=== PATIENT | male | born 1960 | race Caucasian/White ===

== ENCOUNTER 2019-10-31 15:25 | Observation (INO) | payer OTHER, SELFPAY ==
[2019-10-31] VITALS (26 sets, daily range): BP systolic 121–145; BP diastolic 73–103; PULSE 59–75; RESP 0–22; TEMP 36.2–36.4; O2SAT 98–99; BMI 33.0
--- NOTE | 2019-10-31 15:28 | DI.RAD.S_ITS ---
PROCEDURE: XR CHEST 1V INDICATIONS: chest pain TECHNIQUE: One view of the chest was acquired. COMPARISON: None. FINDINGS: Surgical changes and devices: None. Lungs and pleura: Lungs are clear. No pleural effusions or pneumothorax. Mediastinum: Mediastinal contours appear normal. Heart size is normal. Bones and chest wall: No suspicious bony lesions. Overlying soft tissues appear unremarkable. IMPRESSION: No acute process. Dictated by: Azalia Glez M.D. on 10/31/2019 at 15:48 Approved by: Azalia Glez M.D. on 10/31/2019 at 15:48
--- NOTE | 2019-10-31 15:36 | PC.NURSE ---
first bp was left arm 121/103, second is rt arm 145/73
[2019-10-31 15:43] LABS: Add Manual Diff / Slide Review NO; Basophils Absolute Auto 100 /uL (0-100); Eosinophils Absolute Auto 100 /uL (0-450); Eosinophils Percent Auto 1.2 % (2-4); Hematocrit 41.4 % (41-53); Hemoglobin 14.2 g/dL (13.5-17.5); Lymphocytes Absolute Auto 1600 /uL (1100-4500); Lymphocytes Percent Auto 30.5 % (25-40); Mean Corpuscular HGB Conc 34.2 % (30-36); Mean Corpuscular Hemoglobin 30.4 PG (26-34); Mean Corpuscular Volume 88.7 fL (80-100); Monocytes Absolute Auto 400 /uL (0-900); Monocytes Percent Auto 7.5 % (3-14); Neutrophils Absolute Auto 3100 /uL (1500-7000); Neutrophils Percent Auto 59.8 % (50-75); Platelet Count 163 X10^3/uL (150-400); Red Blood Cell Count 4.67 X10^6/uL (4.5-5.9); Red Cell Distribution Width 13.1 % (11.6-14.8); White Blood Cell Count 5.1 X10^3/uL (4.5-11.0)
[2019-10-31 15:49] LABS: Prothrombin Time 11.6 SECONDS (10.1-12.7)
[2019-10-31 15:52] LABS: PTT Partial Thromboplastin Tim 33 SECONDS (26.4-36.2)
[2019-10-31 15:55] LABS: Alanine Aminotransferase 24 IU/L (<50); Albumin 4.8 g/dL (3.5-5.0); Albumin Globulin Ratio 1.5 (1.0-2.8); Alkaline Phosphatase 48 U/L (38-126); Aspartate Aminotransferase 30 IU/L (17-59); BUN Creatinine Ratio 17.1 (6-22); Bilirubin Total 1.1 mg/dL (0.2-1.3); Blood Urea Nitrogen 19 mg/dL (9-20); Calcium 9.6 mg/dL (8.4-10.2); Carbon Dioxide 23 mmol/L (22-32); Chloride 102 mmol/L (98-107); Creatine Kinase 120 U/L (55-170); Estimated Glomerular Filt Rate > 60.0 mL/min (>60); Globulin 3.1 g/dL (1.7-4.1); Glucose 100 mg/dL (80-110); HEMOLYSIS < 15 (0-50); Lipase 128 U/L (23-300); Potassium 4.2 mmol/L (3.4-5.1); Sodium 134 mmol/L (137-145); Total Protein 7.9 g/dL (6.3-8.2)
[2019-10-31 16:06] LABS: Troponin I < 0.012 ng/mL (0.01-0.034)
[2019-10-31 16:11] LABS: CKMB % Relative Index 1.3 % (1.5-5.0); Creatine Kinase MB 1.61 ng/mL (<2.37)
--- NOTE | 2019-10-31 16:17 | PC.NURSE ---
BP right arm 136/92. BP left arm 132/92 On monitor in room. Provider at bedside.
--- NOTE | 2019-10-31 16:20 | PC.NURSE ---
reports stable descending aneurysm dx in 2013. reports no sob, diaphoresis. states he is performing all regular activities with no difficulty.
[2019-10-31] MEDS: SODIUM CHLORIDE 0.9% 500 ML 1000 ML IV (16:28)
--- NOTE | 2019-10-31 16:38 | ED.CHESTPAIN ---
HPI - Chest Pain General Chief Complaint: Chest Pain Stated Complaint: chest pain off and on for 3 weeks Time Seen by Provider: 10/31/19 16:05 Source: patient and family Mode of arrival: Ambulatory Limitations: no limitations History of Present Illness HPI narrative: Patient here with . Complains off and on left-sided chest pain for 3 weeks. No exertional chest pain or dyspnea. Pain may occur at rest or with activity. Pain radiates sometimes to the right and solid upwards. No syncope. No numbness tingling weakness. Patient has history of 4.6 cm ascending aortic aneurysm that is closely followed by his thoracic surgeon back in [place]. His most recent CT scan report brought with him at bedside was completed last year. No recent illness cough cold congestion fever chills. No abdominal pain. No back pain. No altered mental status. Currently no chest pain. Patient states at most discomfort is 3/10. Sometimes lasting upwards to 1-1/2 hours. Last stress test in 2013. Currently chest pain-free Related Data Allergies Allergy/AdvReac Type Severity Reaction Status Date / Time No Known Drug Allergies Allergy Verified 10/31/19 15:28 Review of Systems Review of Systems Narrative: GENERAL: Denies chills, fatigue, malaise, fever, sweats. HEENT: Denies sinus pain, ear pain, sore throat, difficulty swallowing, dizziness. RESPIRATORY: Denies dyspnea, cough, wheezing, hemoptysis, sputum. CARDIOVASCULAR: Complains of chest pain, denies any palpitations, orthopnea, edema, GASTROINTESTINAL: Denies nausea, vomiting, abdominal pain, diarrhea, constipation, melena. : Denies dysuria, frequency, incontinence, hematuria, urinary retention. MUSCULOSKELETAL: denies weakness, joint pain, or bony pain SKIN: Denies rash, skin lesions, or other NEUROLOGIC: Denies weakness, headache, numbness, change in speech, confusion, seizures, incoordination. PSYCHIATRIC: No concerning psychosocial issues. ROS Unobtainable: All systems reviewed & are unremarkable except as noted in HPI and below Patient History Social History Smoking Status: Former smoker Smoking Status: Former smoker alcohol intake frequency: a few times a week Alcohol type: beer Substance Use Type: does not use Exam Narrative Exam Narrative: GENERAL: patient appears stated age. Well-nourished, well-developed patient, in no distress, not toxic HEAD: Atraumatic. Normocephalic. EYES: Pupils equal round and reactive. Extraocular motions intact. No scleral icterus. No injection or drainage. ENT: Nose without bleeding, purulent drainage. Throat without erythema, tonsillar hypertrophy or exudate. Airway patent. NECK: Trachea midline. Non tender CARDIOVASCULAR: Regular rate without murmurs, gallops, or rubs. Symmetric blood pressure each arm conducted by nurse RESPIRATORY: Clear to auscultation. Breath sounds equal bilaterally. No wheezes, rales, or rhonchi. GASTROINTESTINAL: Abdomen soft, non-tender, nondistended. EXTREMITIES: No edema or joint tenderness. BACK: Nontender without deformity or crepitance. No flank tenderness. NEURO: AOx3. SKIN: No rash or erythema of visible areas PSYCH: Not anxious, is cooperative Initial Vital Signs Initial Vital Signs: Vital Signs Temperature 97.5 F L 10/31/19 15:29 Pulse Rate 75 10/31/19 15:29 Respiratory Rate 16 10/31/19 15:29 Blood Pressure 121/103 H 10/31/19 15:29 Pulse Oximetry 98 10/31/19 15:29 Course Course Course Narrative: Patient desires admission hospital Decision to Admit Date: 10/31/19 Decision to Admit time: 18:27 Orders Ordered: ED Orders 10/31/19 15:28 XR chest 1V Stat EKG-12 Lead Stat 10/31/19 15:35 Complete Blood Count AUTO DIFF Stat Comprehensive Metabolic Panel Stat Lipase Stat Partial Thromboplastin Time Stat Prothrombin Time INR Stat Troponin & CK Cardiac Panel Stat 10/31/19 16:49 Troponin I Stat 10/31/19 17:00 CT angio chest PE protocol Stat Discontinued Medications Sodium Chloride (Normal Saline 0.9%) 500 mls @ 1,000 mls/hr IV BOLUS ONE Stop: 10/31/19 16:49 Last Infusion: 10/31/19 17:17 Dose: 0 mls/hr Documented by: Admin: 10/31/19 16:28 Dose: 1,000 mls/hr Documented by: WHITNEY Reevaluation(s) Reevaluation #1: Patient remains chest pain-free Time: 16:39 Reevaluation #2: Still chest pain free Time: 18:28 Consultations Consultation #1: Spoke with hospitalist Dr. conroy, she will admit patient Time: 18:28 Vital Signs Vital signs: Vital Signs - 8 hr 10/31/19 15:29 10/31/19 15:40 10/31/19 15:41 Temperature 97.5 F L Pulse Rate 75 Respiratory Rate 16 Blood Pressure 121/103 H 145/73 H 145/83 H Pulse Oximetry 98 10/31/19 16:09 10/31/19 16:11 10/31/19 16:12 Temperature Pulse Rate 73 71 70 Respiratory Rate 22 17 20 Blood Pressure 132/92 H 136/93 H Pulse Oximetry 10/31/19 16:30 10/31/19 17:00 Temperature Pulse Rate 65 65 Respiratory Rate 14 11 L Blood Pressure Pulse Oximetry MDM - Chest Pain Differential Diagnosis Differential diagnosis: Likely stable angina, unstable angina pectoris and chest pain Lab Data Attestation: I reviewed the patient's lab results. Result diagrams: 10/31/19 15:35 10/31/19 15:35 Labs: Lab Results 10/31/19 10/31/19 10/31/19 Range/Units 15:35 15:35 15:35 WBC 5.1 (4.5-11.0) X10^3/uL RBC 4.67 (4.5-5.9) X10^6/uL Hgb 14.2 (13.5-17.5) g/dL Hct 41.4 (41-53) % MCV 88.7 (80-100) fL MCH 30.4 (26-34) PG MCHC 34.2 (30-36) % RDW 13.1 (11.6-14.8) % Plt Count 163 (150-400) X10^3/uL Neut % (Auto) 59.8 (50-75) % Lymph % (Auto) 30.5 (25-40) % [place] % (Auto) 7.5 (3-14) % Eos % (Auto) 1.2 L (2-4) % Baso % (Auto) 1.0 (0-2) % Neut # (Auto) 3100 (8901-5189) /uL Lymph # (Auto) 1600 (4511-4036) /uL [place] # (Auto) 400 (0-900) /uL Eos # (Auto) 100 (0-450) /uL Baso # (Auto) 100 (0-100) /uL PT 11.6 (10.1-12.7) SECONDS INR 1.0 (0.9-1.3) APTT 33 (26.4-36.2) SECONDS Sodium 134 L (137-145) mmol/L Potassium 4.2 (3.4-5.1) mmol/L Chloride 102 (98-107) mmol/L Carbon Dioxide 23 (22-32) mmol/L BUN 19 (9-20) mg/dL Creatinine 1.11 (0.66-1.25) mg/dL Estimated GFR > 60.0 (>60) mL/min BUN/Creatinine Ratio 17.1 (6-22) Glucose 100 (80-110) mg/dL Calcium 9.6 (8.4-10.2) mg/dL Total Bilirubin 1.1 (0.2-1.3) mg/dL AST 30 (17-59) IU/L ALT 24 (<50) IU/L Alkaline Phosphatase 48 (38-126) U/L Total Creatine Kinase 120 (55-170) U/L CK-MB (CK-2) 1.61 (<2.37) ng/mL CK-MB (CK-2) Rel Index 1.3 L (1.5-5.0) % Troponin I < 0.012 (0.01-0.034) ng/mL Total Protein 7.9 (6.3-8.2) g/dL Albumin 4.8 (3.5-5.0) g/dL Globulin 3.1 (1.7-4.1) g/dL Albumin/Globulin Ratio 1.5 (1.0-2.8) Lipase 128 (23-300) U/L 10/31/19 Range/Units 16:49 WBC (4.5-11.0) X10^3/uL RBC (4.5-5.9) X10^6/uL Hgb (13.5-17.5) g/dL Hct (41-53) % MCV (80-100) fL MCH (26-34) PG MCHC (30-36) % RDW (11.6-14.8) % Plt Count (150-400) X10^3/uL Neut % (Auto) (50-75) % Lymph % (Auto) (25-40) % [place] % (Auto) (3-14) % Eos % (Auto) (2-4) % Baso % (Auto) (0-2) % Neut # (Auto) (4322-2134) /uL Lymph # (Auto) (9608-9594) /uL [place] # (Auto) (0-900) /uL Eos # (Auto) (0-450) /uL Baso # (Auto) (0-100) /uL PT (10.1-12.7) SECONDS INR (0.9-1.3) APTT (26.4-36.2) SECONDS Sodium (137-145) mmol/L Potassium (3.4-5.1) mmol/L Chloride (98-107) mmol/L Carbon Dioxide (22-32) mmol/L BUN (9-20) mg/dL Creatinine (0.66-1.25) mg/dL Estimated GFR (>60) mL/min BUN/Creatinine Ratio (6-22) Glucose (80-110) mg/dL Calcium (8.4-10.2) mg/dL Total Bilirubin (0.2-1.3) mg/dL AST (17-59) IU/L ALT (<50) IU/L Alkaline Phosphatase (38-126) U/L Total Creatine Kinase (55-170) U/L CK-MB (CK-2) (<2.37) ng/mL CK-MB (CK-2) Rel Index (1.5-5.0) % Troponin I < 0.012 (0.01-0.034) ng/mL Total Protein (6.3-8.2) g/dL Albumin (3.5-5.0) g/dL Globulin (1.7-4.1) g/dL Albumin/Globulin Ratio (1.0-2.8) Lipase (23-300) U/L Imaging Data Chest x-ray: Radiologist's Impression: [address] [address] XRay Report Signed Patient: Luis Alberto Rutledge#: [id number] : 9Acct:[id number] Age/Sex: 59 / MDate of Service: 10/31/19 Loc: ED Accession Number: [id number] Procedure: XR chest 1V Ordering Provider: Jeff Waldrop MD PROCEDURE: XR CHEST 1V INDICATIONS: chest pain TECHNIQUE: One view of the chest was acquired. COMPARISON: None. FINDINGS: Surgical changes and devices: None. Lungs and pleura: Lungs are clear. No pleural effusions or pneumothorax. Mediastinum: Mediastinal contours appear normal. Heart size is normal. Bones and chest wall: No suspicious bony lesions. Overlying soft tissues appear unremarkable. IMPRESSION: No acute process. Dictated by: Azalia Glez M.D. on 10/31/2019 at 15:48 Approved by: Azalia Glez M.D. on 10/31/2019 at 15:48 CT scan - chest: Radiologist's Impression: [place] [address] CT Scan Report Signed Patient: Luis Alberto Rutledge#: [id number] : 9Acct:[id number] Age/Sex: 59 / MDate of Service: 10/31/19 Loc: ED Accession Number: [id number] Procedure: CT angio chest PE protocol Ordering Provider: Jeff Waldrop MD PROCEDURE: CT ANGIO CHEST PE PROTOCOL INDICATIONS: chest pain TECHNIQUE: After the administration of intravenous contrast, 2 mm thick sections acquired from the pulmonary apices to the posterior costophrenic angles. 3-dimensional maximum intensity projection (MIP) coronal and sagittal reformats were then acquired through the thorax. For radiation dose reduction, the following was used: automated exposure control, adjustment of mA and/or kV according to patient size. COMPARISON: None. FINDINGS: Image quality: Excellent. Pulmonary arteries: Pulmonary arteries are normal in size, and demonstrate no intraluminal filling defects to suggest central pulmonary embolism. Lungs and pleura: Lungs are clear. No pleural effusions or pneumothorax. Central and peripheral airways are patent. Mediastinum: Heart size is normal, without pericardial effusion. No mediastinal or hilar adenopathy. The ascending thoracic aorta measures 4.7 cm in oblique axial diameter. The arch in the descending thoracic aorta demonstrate normal course and caliber. Esophagus is normal in caliber, without hiatal hernia. Bones and chest wall: No suspicious bony lesions. Ribs and thoracic spine appear intact throughout. Thyroid gland is unremarkable . No axillary or supraclavicular adenopathy. Abdomen: A nonobstructing calculus is present within the upper pole of the left kidney. Visualized upper abdominal solid organs appear normal in the early arterial phase of enhancement. IMPRESSION: Numeral 1. No acute pulmonary embolus. 2. Nonobstructive left nephrolithiasis. Dictated by: Christine Mar M.D. on 10/31/2019 at 17:36 Approved by: Christine Mar M.D. on 10/31/2019 at 17:39 ECG Data Attestation: I personally reviewed and interpreted this ECG as follows: Interpretation: Normal sinus rhythm, normal EKG, no ST elevation or depression, ventricular rate 68 MDM Narrative Medical decision making narrative: Appropriate for admission for chest pain rule out and stress test. Patient and are retired and lives in the do not have regular primary care office. They travel the country Discharge Plan Departure Patient Disposition: Admitted as Observation Clinical Impression: Chest pain Qualifiers: Chest pain type: unspecified Qualified Code(s): R07.9 - Chest pain, unspecified
--- NOTE | 2019-10-31 16:48 | PC.NURSE ---
drawn by lab
--- NOTE | 2019-10-31 17:00 | DI.CT.S_ITS ---
PROCEDURE: CT ANGIO CHEST PE PROTOCOL INDICATIONS: chest pain TECHNIQUE: After the administration of intravenous contrast, 2 mm thick sections acquired from the pulmonary apices to the posterior costophrenic angles. 3-dimensional maximum intensity projection (MIP) coronal and sagittal reformats were then acquired through the thorax. For radiation dose reduction, the following was used: automated exposure control, adjustment of mA and/or kV according to patient size. COMPARISON: None. FINDINGS: Image quality: Excellent. Pulmonary arteries: Pulmonary arteries are normal in size, and demonstrate no intraluminal filling defects to suggest central pulmonary embolism. Lungs and pleura: Lungs are clear. No pleural effusions or pneumothorax. Central and peripheral airways are patent. Mediastinum: Heart size is normal, without pericardial effusion. No mediastinal or hilar adenopathy. The ascending thoracic aorta measures 4.7 cm in oblique axial diameter. The arch in the descending thoracic aorta demonstrate normal course and caliber. Esophagus is normal in caliber, without hiatal hernia. Bones and chest wall: No suspicious bony lesions. Ribs and thoracic spine appear intact throughout. Thyroid gland is unremarkable . No axillary or supraclavicular adenopathy. Abdomen: A nonobstructing calculus is present within the upper pole of the left kidney. Visualized upper abdominal solid organs appear normal in the early arterial phase of enhancement. IMPRESSION: Numeral 1. No acute pulmonary embolus. 2. Nonobstructive left nephrolithiasis. Dictated by: Christine Mar M.D. on 10/31/2019 at 17:36 Approved by: Christine Mar M.D. on 10/31/2019 at 17:39
[2019-10-31 17:20] LABS: Troponin I < 0.012 ng/mL (0.01-0.034)
[2019-10-31] MEDS: ASPIRIN 81 MG CHEW TAB 324 MG PO (18:33)
--- NOTE | 2019-10-31 19:30 | PC.NURSE ---
[birth year]29- Admit from Emergency. Patient alert and oriented. Oriented to the room and assisted to the bed. Patient at bedside. Patient states he is pain free at this time. VSS.
[2019-10-31 20:01] LABS: COVID19 -Nasal RAPID Negative (Negative)
[2019-10-31 23:33] LABS: Troponin I < 0.012 ng/mL (0.01-0.034)
[2019-11-01] VITALS (9 sets, daily range): BP systolic 96–144; BP diastolic 68–107; PULSE 53–78; RESP 16–18; TEMP 35.7–36.3; O2SAT 95–99
--- NOTE | 2019-11-01 01:44 | P.HP_ITS ---
History of Present Illness History of Present Illness Date Patient Seen: 10/31/19 Time Patient Seen: 21:30 Chief complaint: chest pain off and on for 3 weeks Narrative: Luis Alberto Rutledge is a pleasant 59-year-old male with a history of a stable aortic aneurysm, hypertension, hyperlipidemia, and a resident of [place] and traveling for the summer in an RV with his when he developed sudden onset chest discomfort, he inform the ED provider that the pain lasts from anywhere from 1-2 hours. Three days ago stopped taking his losartan due to his blood pressure dropping too much. It dropped down to 75/53 and at that point he developed a headache and became quite dizzy. He was changed over to olmesartan however has not taken it for the past 3 days because he ran out of it and he has not been able to to obtain it anymore. Currently his chest pain is dull it is on the left-hand side and does not radiate. He denies feeling like he has chest pressure, denies diaphoresis, fevers sweats or chills, denies nausea vomiting, denies shortness of breath, denies abdominal pain, denies dysuria, denies diarrhea or constipation, denies numbing and tingling of his upper and lower extremities. Patient is followed by beamer helper in [place] and his last stress test was in 2013. In the ED chest CT and EKG were done and were negative. During the 2013 stress test his heart rate went up to 188 and he ended up having to have an ablation to bring down his heart rate. He received a one liter bolus of normal saline in the ED. Chest CT indicated a 4.6 cm ascending aortic aneurysm. Temp is 96.5?, blood pressure 118/78, heart rate 53, respiratory rate 18, oxygen saturation 96% on room air weighs 191.6 kg and has a BMI of 33. WBC 5.1, RBC 4.67 hemoglobin 14.2 hematocrit 41.4 and platelet count of 163, INR is 1.0. Sodium 134, potassium 4.2, chloride 102, CO2 23, BUN 19, creatinine 1.11, GFR is greater than 60, glucose is 100, calcium 9.6, liver enzymes are within normal limits, CK-MB is 1.3 and 3 troponins are all negative. COVID-19 is negative. Patient History Medical History Aortic aneurysm (Acute) Essential hypertension (Acute) History of tachycardia (Acute) HLD (hyperlipidemia) (Acute) Surgical History History of cardiac radiofrequency ablation (Acute) History of left hip replacement (Acute) Family & Social History Family History (Updated 11/01/19 @ 02:03 by EVELIN Burgos) Mother Parkinson disease Father History of heart valve replacement Prostate cancer Social History: household members spouse Prior Living Arrangements RV Safety & Behavioral: Feels Safe in Current Yes Environment Been Physically Hurt or No Threatened By a Person Suicidal Ideation Description None Suicide Plan Description No Plan Tobacco & Substance use: Smoking Status Former smoker alcohol intake frequency a few times a week Substance Use Type does not use Meds Home Medications and Allergies Home Medications Medication Instructions Recorded Confirmed Type olmesartan 20 mg PO DAILY 10/31/19 10/31/19 History omeprazole 20 mg PO DAILY 10/31/19 10/31/19 History rosuvastatin 10 mg PO DAILY 10/31/19 10/31/19 History Allergies Allergy/AdvReac Type Severity Reaction Status Date / Time No Known Drug Allergies Allergy Verified 10/31/19 15:28 Review of Systems Review of Systems ROS: Yes All systems reviewed with the patient and are negative except as otherwise documented Exam Vital Signs (past 8 hours): - 10/31/19 19:20 11/01/19 00:36 11/01/19 00:38 Temperature 97.1 F L 96.5 F L Pulse Rate 62 53 L Respiratory Rate 16 18 Blood Pressure 131/87 118/78 Pulse Oximetry 99 96 96 Oxygen Delivery Method Room Air Narrative Exam Narrative: Gen: Alert, oriented, well-developed 59 y.o. male, appears younger than stated age HEENT: normocephalic, atraumatic, conjunctiva clear, sclera non-icteric, oral mucosa pink and moist Neck: supple, full ROM, no JVD, trachea is midline Resp: Lungs CTA, non-labored breathing CV: RRR, no murmur or rubs Abd: soft, non-tender, normoactive BTs Skin: no lesions or rashes, dry and intact Neuro: Alert and oriented X 4 w/no focal deficits. Speech clear and coherent. Extremities: moves all 4 extremities, is ambulatory, negative Magdalena?s sign Psyche: normal mood and affect Objective Labs Result Diagrams: 10/31/19 15:35 10/31/19 15:35 Labs: Laboratory Results - last 24 hr 10/31/19 10/31/19 10/31/19 15:35 15:35 15:35 WBC 5.1 RBC 4.67 Hgb 14.2 Hct 41.4 MCV 88.7 MCH 30.4 MCHC 34.2 RDW 13.1 Plt Count 163 Neut % (Auto) 59.8 Lymph % (Auto) 30.5 [place] % (Auto) 7.5 Eos % (Auto) 1.2 L Baso % (Auto) 1.0 Neut # (Auto) 3100 Lymph # (Auto) 1600 [place] # (Auto) 400 Eos # (Auto) 100 Baso # (Auto) 100 PT 11.6 INR 1.0 APTT 33 Sodium 134 L Potassium 4.2 Chloride 102 Carbon Dioxide 23 BUN 19 Creatinine 1.11 Estimated GFR > 60.0 BUN/Creatinine Ratio 17.1 Glucose 100 Calcium 9.6 Total Bilirubin 1.1 AST 30 ALT 24 Alkaline Phosphatase 48 Total Creatine Kinase 120 CK-MB (CK-2) 1.61 CK-MB (CK-2) Rel Index 1.3 L Troponin I < 0.012 Total Protein 7.9 Albumin 4.8 Globulin 3.1 Albumin/Globulin Ratio 1.5 Lipase 128 COVID-19 PCR 10/31/19 10/31/19 10/31/19 16:49 18:46 23:00 WBC RBC Hgb Hct MCV MCH MCHC RDW Plt Count Neut % (Auto) Lymph % (Auto) [place] % (Auto) Eos % (Auto) Baso % (Auto) Neut # (Auto) Lymph # (Auto) [place] # (Auto) Eos # (Auto) Baso # (Auto) PT INR APTT Sodium Potassium Chloride Carbon Dioxide BUN Creatinine Estimated GFR BUN/Creatinine Ratio Glucose Calcium Total Bilirubin AST ALT Alkaline Phosphatase Total Creatine Kinase CK-MB (CK-2) CK-MB (CK-2) Rel Index Troponin I < 0.012 < 0.012 Total Protein Albumin Globulin Albumin/Globulin Ratio Lipase COVID-19 PCR Negative Assessment & Plan Assessment & Plan narrative: Luis Alberto Rutledge will be observed overnight and undergo stress testing and a cardiac echocardiogram. Chest pain, acute and present on admission -serial troponins have been negative -He will be stressed in on 10/31 and undergo an echocardiogram that day Essential hypertension, chronic and stable -Normally takes olmasartan 20 mg po daily -He will receive losartan 25 mg in the am for blood pressure Hyperlipidemia, chronic and stable -Continue home dose of rosuvastatin 5 mg daily Ascending aortic anuerysm, stable, present on admission Plan: Consults: none Patient is observation status as his stay is not likely to exceed 2 midnights. FEN: IV saline lock, low sodium diet, BMP and magnesium in the am. VTE prophylaxis: Bilateral SCDs Dispo: probable discharge to home Code Status: as discussed with patient
[2019-11-01 05:14] LABS: Add Manual Diff / Slide Review NO; Basophils Absolute Auto 0 /uL (0-100); Basophils Percent Auto 1.2 % (0-2); Eosinophils Absolute Auto 100 /uL (0-450); Eosinophils Percent Auto 2.3 % (2-4); Hematocrit 40.6 % (41-53); Lymphocytes Absolute Auto 1500 /uL (1100-4500); Lymphocytes Percent Auto 38.7 % (25-40); Mean Corpuscular HGB Conc 34.4 % (30-36); Mean Corpuscular Hemoglobin 30.4 PG (26-34); Mean Corpuscular Volume 88.3 fL (80-100); Monocytes Absolute Auto 300 /uL (0-900); Monocytes Percent Auto 8.2 % (3-14); Neutrophils Absolute Auto 2000 /uL (1500-7000); Neutrophils Percent Auto 49.6 % (50-75); Platelet Count 154 X10^3/uL (150-400); Red Cell Distribution Width 13.1 % (11.6-14.8)
[2019-11-01 05:28] LABS: BUN Creatinine Ratio 18.6 (6-22); Blood Urea Nitrogen 16 mg/dL (9-20); Calcium 9.6 mg/dL (8.4-10.2); Carbon Dioxide 24 mmol/L (22-32); Chloride 103 mmol/L (98-107); Cholesterol 138 mg/dL (140-199); Estimated Glomerular Filt Rate > 60.0 mL/min (>60); Glucose 86 mg/dL (80-110); HDL Cholesterol 53 mg/dL (40-60); HEMOLYSIS < 15 (0-50); LDL Cholesterol Calculated 59 mg/dL (<100); Magnesium 2.1 mg/dL (1.6-2.3); Potassium 4.3 mmol/L (3.4-5.1); Sodium 136 mmol/L (137-145); Triglycerides 130 mg/dL (35-150)
--- NOTE | 2019-11-01 08:55 | PC.NURSE ---
Day shift: Pt off AC unit for stress test
--- NOTE | 2019-11-01 09:44 | PC.NURSE ---
Day shift: Pt back on unit at approx [id number]
[2019-11-01] MEDS: ROSUVASTATIN 10 MG TABLET PO (10:03)
[2019-11-01] MEDS: LOSARTAN 25 MG TABLET PO (10:03)
[2019-11-01] MEDS: PANTOPRAZOLE 20 MG TABLET PO (10:03)
[2019-11-01] MEDS: ASPIRIN EC 81 MG TABLET PO (10:03)
--- NOTE | 2019-11-01 12:33 | PC.NURSE ---
Day shift: Pt off unit at approx 1234 for the 2nd part of stress test.
--- NOTE | 2019-11-01 14:11 | CM.DANOTE ---
DCP: assessment: case received, EMR reviewed and met with pt during Team Bedside Rounds. Introduced self and role. Pt is a 59 year old male who admitted last evening to care of hospitalist team. His physician team is in [place] where he and his live. Dr. Shipley stated to all that he had cancelled the ECHO as this was not needed but that pt would need the second half of his stress test today before d/c could be considered. Pt is currently off of the unit having this test. P: home vs transfer is need be for higher level of cardiac care.
--- NOTE | 2019-11-01 17:17 | PM.DS.1 ---
History of Present Illness History of Present Illness Chief complaint: chest pain off and on for 3 weeks Narrative: Luis Alberto Rutledge is a pleasant 59-year-old male with a history of a stable aortic aneurysm, hypertension, hyperlipidemia, and a resident of [place] and traveling for the summer in an RV with his when he developed sudden onset chest discomfort, he inform the ED provider that the pain lasts from anywhere from 1-2 hours. Three days ago stopped taking his losartan due to his blood pressure dropping too much. It dropped down to 75/53 and at that point he developed a headache and became quite dizzy. He was changed over to olmesartan however has not taken it for the past 3 days because he ran out of it and he has not been able to to obtain it anymore. Currently his chest pain is dull it is on the left-hand side and does not radiate. He denies feeling like he has chest pressure, denies diaphoresis, fevers sweats or chills, denies nausea vomiting, denies shortness of breath, denies abdominal pain, denies dysuria, denies diarrhea or constipation, denies numbing and tingling of his upper and lower extremities. 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 In the ED chest CT and EKG were done and were negative. During the 2013 stress test his heart rate went up to 188 and he ended up having to have an ablation to bring down his heart rate. He received a one liter bolus of normal saline in the ED. Chest CT indicated a 4.6 cm ascending aortic aneurysm. Temp is 96.5?, blood pressure 118/78, heart rate 53, respiratory rate 18, oxygen saturation 96% on room air weighs 191.6 kg and has a BMI of 33. WBC 5.1, RBC 4.67 hemoglobin 14.2 hematocrit 41.4 and platelet count of 163, INR is 1.0. Sodium 134, potassium 4.2, chloride 102, CO2 23, BUN 19, creatinine 1.11, GFR is greater than 60, glucose is 100, calcium 9.6, liver enzymes are within normal limits, CK-MB is 1.3 and 3 troponins are all negative. COVID-19 is negative. Discharge Providers Provider Date of admission: 10/31/19 18:29 Discharge Date: 08/13/20 Discharge provider: Ben Shipley MD Summary Hospital Course Discharge Diagnosis: 1. Chest pain 2. Hypertension 3. Stable ascending thoracic aneurysm Hospital Course: Patient admitted for workup of atypical chest pain. He had serial negative cardiac enzymes and no EKG changes. His myocardial perfusion stress test indicated above average exercise tolerance. He did not have chest pain or EKG changes and had a normal myocardial perfusion scan. Additionally his CTA ruled out pulmonary embolism. He has a 4.7 cm sending thoracic aorta aneurysm that looked stable. Patient will double up on his omeprazole to see if that helps his chest pain which may be acid reflux related. In addition patient notes recent symptomatic low blood pressures when he was switched from losartan to Benicar. We put him back on losartan 25 mg b.i.d. this admission and sending Rx for same to substitute for Benicar. He will follow-up with PCP. Status at Discharge Cognitive/behavioral status at discharge: oriented Functional status at discharge: independent ambulation Overall status at discharge: patient is progressing back to baseline Exam Vital Signs (past 8 hours): - 11/01/19 09:30 11/01/19 12:30 11/01/19 12:33 Temperature 97.0 F L 97.3 F L Pulse Rate 68 64 66 Respiratory Rate 16 18 Blood Pressure 144/83 H 132/107 H 118/76 Pulse Oximetry 99 99 11/01/19 16:02 11/01/19 17:08 Temperature 97.4 F L Pulse Rate 78 Respiratory Rate 16 Blood Pressure 96/68 Pulse Oximetry 95 95 Oxygen Delivery Method Room Air Oxygen Flow Rate 0 Objective Labs Result Diagrams: 11/01/19 04:47 11/01/19 04:47 Labs: Laboratory Results - last 24 hr 10/31/19 10/31/19 10/31/19 16:49 18:46 23:00 WBC RBC Hgb Hct MCV MCH MCHC RDW Plt Count Neut % (Auto) Lymph % (Auto) Morgan % (Auto) Eos % (Auto) Baso % (Auto) Neut # (Auto) Lymph # (Auto) Morgan # (Auto) Eos # (Auto) Baso # (Auto) Sodium Potassium Chloride Carbon Dioxide BUN Creatinine Estimated GFR BUN/Creatinine Ratio Glucose Calcium Magnesium Troponin I < 0.012 < 0.012 Triglycerides Cholesterol LDL Cholesterol, Calc HDL Cholesterol COVID-19 PCR Negative 11/01/19 11/01/19 04:47 04:47 WBC 4.0 L RBC 4.60 Hgb 14.0 Hct 40.6 L MCV 88.3 MCH 30.4 MCHC 34.4 RDW 13.1 Plt Count 154 Neut % (Auto) 49.6 L Lymph % (Auto) 38.7 Morgan % (Auto) 8.2 Eos % (Auto) 2.3 Baso % (Auto) 1.2 Neut # (Auto) 2000 Lymph # (Auto) 1500 Morgan # (Auto) 300 Eos # (Auto) 100 Baso # (Auto) 0 Sodium 136 L Potassium 4.3 Chloride 103 Carbon Dioxide 24 BUN 16 Creatinine 0.86 Estimated GFR > 60.0 BUN/Creatinine Ratio 18.6 Glucose 86 Calcium 9.6 Magnesium 2.1 Troponin I Triglycerides 130 Cholesterol 138 L LDL Cholesterol, Calc 59 HDL Cholesterol 53 COVID-19 PCR Discharge Plan Discharge Plan Patient Disposition: Home Discharge comment: Your stress test did not show evidence of coronary blockage. Try doubling up on your omeprazole for the next week. Follow up for any worsening symptoms. I sent in losartan to substitute for olmesartan. Discharge orders & Medications Prescriptions: New losartan 25 mg tablet 25 mg PO BID Qty: 60 RF: 0 Continued rosuvastatin 10 mg Tablet 10 mg PO DAILY RF: 0 omeprazole 20 mg Tablet,Delayed Release (Dr/Ec) 20 mg PO DAILY RF: 0 Discontinued olmesartan 20 mg Tablet 20 mg PO DAILY RF: 0 Diet/Activity/Treatments Diet: Diet as Tolerated Discharge Data Attending Provider: Germaine Carlson Admit Date/Time: 10/31/19 18:29
--- NOTE | 2019-11-01 18:28 | DI.NM.S_ITS ---
DATE OF SERVICE: 11/01/2019 PROCEDURE: Exercise perfusion study. INDICATION: Chest pain with underlying hypertension and hyperlipidemia. RADIOPHARMACEUTICAL: 27.4 millicurie technetium-99m Myoview IV was injected at stress and 12.3 millicurie technetium-99m Myoview IV was injected at rest. CARDIAC STRESS: The patient underwent exercise perfusion study under the supervision of an attending staff. The patient walked on Arnol protocol for 10 minutes 08 seconds, achieved 105 percent of target heart rate, normal blood pressure response, 12.8 METS of workload and functional aerobic impairment -17 percent. Baseline rhythm was sinus. During stress, no convincing ischemic changes. No significant arrhythmias. No anginal symptoms. There was normal blood pressure response. RAW DATA: There is increased subdiaphragmatic activity. Patient's weight is 224 pounds. GATED STUDY: Stress LV ejection fraction 87 percent without any obvious wall motion abnormalities. Resting end-diastolic volume 84 mL. No transient ischemic dilatation. TID ratio 0.63, which is within normal limits. Lung/heart ratio 0.22, which is within normal limits. MYOCARDIAL PERFUSION: Stress supine and resting supine, as well as stress prone images, were compared to each other. Resting supine images reveal small size mildly decreased perfusion of inferior wall, inferior apex, which got completely resolved during prone images. Prone images revealed normal myocardial perfusion. During stress supine, there was minimally decreased perfusion of basal inferior wall. CONCLUSION: I will call this study a normal myocardial perfusion study with evidence of diaphragmatic tissue attenuation artifact, which got resolved during prone images. Good exercise tolerance. LEENA -17 percent. Normal hemodynamic response. No ischemic EKG changes. No significant arrhythmias. Overall, this is a low-risk exercise perfusion scan. Luis Alberto Rutledge - BERNIE/darryl/lc doc#: [id number]/job#: [id number] dd: 11/01/2019 16:56:00 dt: 11/01/2019 18:13:00 DICTATING MD/COPIES TO: Brittanie Gibbs MD COPIES MNE: JOO;
--- NOTE | 2019-11-01 19:57 | PC.NURSE ---
Patient teaching done with patient and spouse at bedside. Patient denies chest pain at the time of d/c but does report having a 20 min. episode of pain prior to d/c. Patient wished to walk down to car on own with no assistance. patient left in stable condition, VSS.
== END 2019-11-01 17:40 | disposition home or self-care (01) ==
LOC: ED 18:24 → AC 18:31
PROVIDERS: Nurse Practitioner Family; Admitting Provider Internal Medicine; Emergency Provider Emergency Medicine; Referring Provider Emergency Medicine; Visit Provider Internal Medicine
DX: R07.9 Chest pain, unspecified (principal); I10 Essential (primary) hypertension; E78.5 Hyperlipidemia, unspecified; I71.4 Abdominal aortic aneurysm, without rupture; Z11.59 Encounter for screening for other viral diseases
CPT/HCPCS: 36415; 36592; 71045; 71275; 78452; 80048; 80053; 80061; 82550; 82553; 83690; 83735; 84484; 85025; 85610; 85730; 87635; 93005; 93017; 96360; 99284; G0378; A9502; Q9967